=== PATIENT | male | born 1995 | race Caucasian/White ===

== ENCOUNTER 2017-01-31 15:52 | Emergency (ER) | payer OTHER ==
[~2017-01-31] VITALS: Ht 180.3 cm; Wt 83.9 kg
[2017-01-31 15:53] VITALS: BP 128/76
[2017-01-31] MEDS ORDERED: ONDANSETRON 4 MG ORAL DISINTEGRATING TAB (S0181) PO ONE ×2 (16:30→17:15)
[2017-01-31] MEDS ORDERED: ZOFR4TAB3 PO (17:05)
== END 2017-01-31 17:18 | disposition home or self-care (01) ==
LOC: M ED 16:58
DX: E86.0 Dehydration (principal); R11.2 Nausea with vomiting, unspecified